=== PATIENT | female | born 1990 | race Caucasian/White ===

== ENCOUNTER 2016-09-21 14:22 | Emergency (ER) | payer OTHER ==
[2016-09-21 14:28] VITALS: PULSE 74
--- NOTE | 2016-09-21 14:52 | CPEKG ---
Heart Rate: 79 RR Interval: 759 P-R Interval: 156 QRSD Interval: 76 QT Interval: 368 QTC Interval: 422 P [place]: 75 QRS [place]: 53 T Wave [place]: 24 EKG Severity - NORMAL ECG - EKG Impression: SINUS RHYTHM Electronically Signed By: Saima Woodruff 21-Sep-2016 20:52:18
[2016-09-21 15:05] LABS: % IMMATURE GRANULYOCYTES 0.7 % (0.0-1.1); ABSOLUTE IMMATURE GRANULOCYTES 0.08 10^3/uL (0.00-0.10); ADD DIFF? NO; ADD MORPH? NO; ADD SCAN? NO; ATYPICAL LYMPHOCYTE FLAG 0 (0-99); FRAGMENT RBC FLAG 0 (0-99); HEMATOCRIT 41.2 % (38.0-47.0); HEMOGLOBIN 14.4 g/dL (12.6-16.3); LEFT SHIFT FLG 0 (0-99); LIPEMIA HEMOLYSIS FLAG 90 (0-99); MEAN CELL HEMOGLOBIN 33.6 pg (27.9-34.1); MEAN CELL VOLUME 96.3 fL (81.5-99.8); MEAN PLATELET VOLUME 12.3 fL (8.7-11.7); PLATELET CLUMPS FLAG 0 (0-99); PLATELET COUNT 238 10^3/uL (150-400); RED BLOOD CELL COUNT 4.28 10^6/uL (4.18-5.33); RED CELL DISTRIBUTION WIDTH 12.1 % (11.5-15.2)
[2016-09-21] MEDS ORDERED: OXYCODONE/APAP 5/325 TAB PO ONE (15:09)
--- NOTE | 2016-09-21 15:17 | EDPHY ---
H & P Time Seen by Provider: 09/21/16 14:42 HPI/ROS: 25-year-old female presented to emergency department complaining of left lower anterior rib pain. Onset at 9 o'clock last night, patient states she was sitting down watching TV when she felt a cramp right head area at that time it was a 10/10 pain, pain has now decreased but still intermittent increased pain with deep inspiration. Patient states that she has been sick with cough for 2- 3 weeks, initially with fever and chills but those symptoms have resolved denies any trauma. Patient states she does smoke marijuana the rib area is painful when she does take a deep inspiration when she is smoking marijuana. Denies any other complaints REVIEW OF SYSTEMS: Constitutional: Positive for fatigue, no changes in appetite or ADLs ENT: Intermittent sore throat Respiratory: Positive cough, rib pain with deep inspiration Cardiac: No chest pain Gastrointestinal: No abdominal pain nausea or vomiting Musculoskeletal: Positive rib pain Skin: No rashes Neurological: No headache or dizziness Smoking Status: Light smoker (smokes marijuana) Physical Exam: CONSTITUTIONAL: patient appeared well nourished, non-ill appearing and normally developed. No acute distress. Vital signs as documented. HEENT: Normocephalic atraumatic NECK: Supple, FROM without pain RESP: Non-labored resp effort, airway patent, CTAB CARDIAC: RRR w/o murmur, lorenzo. Normal S1/S2 GI: Abd soft NTTP, no mass MSK/EXTREMITIES: Left anterior rib and intercostal tenderness @9th/10th. SKIN: Warm dry PSYCH: Normal affect, calm, no distress Constitutional: Initial Vital Signs Temperature (C) 36.7 C 09/21/16 14:23 Heart Rate 74 09/21/16 14:23 Respiratory Rate 18 09/21/16 14:23 Blood Pressure 143/76 H 09/21/16 14:23 O2 Sat (%) 96 09/21/16 14:23 O2 Delivery Mode Room Air Allergies/Adverse Reactions: No Known Allergies Allergy (Unverified 10/13/09 01:17) Home Medications: Medication Instructions Recorded LAMICTAL ODT 10/13/09 Vivance 10/13/09 oxyCODONE/APAP 5/325 [Percocet 1 - 2 tab PO Q4H PRN #10 tab 09/21/16 5/325 (*)] Medical Decision Making - Diagnostics Imaging: Chest x-ray no acute findings ED Course/Re-evaluation: Discussed the plan of care: Chest x-ray negative for any acute findings, EKG labs drawn. Discharge home---> stable, discussed discharge instructions Differential Diagnosis: Differential diagnosis considered but not limited to pneumonia, pneumothorax and pleural effusion - Data Points Laboratory Results: Laboratory Results 09/21/16 14:55 09/21/16 09/21/16 14:55 14:55 WBC 11.44 10^3/uL H 10^3/uL (3.80-9.50) RBC 4.28 10^6/uL 10^6/uL (4.18-5.33) Hgb 14.4 g/dL g/dL (12.6-16.3) Hct 41.2 % % (38.0-47.0) MCV 96.3 fL fL (81.5-99.8) MCH 33.6 pg pg (27.9-34.1) MCHC 35.0 g/dL g/dL (32.4-36.7) RDW 12.1 % % (11.5-15.2) Plt Count 238 10^3/uL 10^3/uL (150-400) MPV 12.3 fL H fL (8.7-11.7) Neut % (Auto) 75.8 % H % (39.3-74.2) Lymph % (Auto) 16.7 % % (15.0-45.0) [place] % (Auto) 5.1 % % (4.5-13.0) Eos % (Auto) 0.9 % % (0.6-7.6) Baso % (Auto) 0.8 % % (0.3-1.7) Nucleat RBC Rel Count 0.0 % % (0.0-0.2) Absolute Neuts (auto) 8.68 10^3/uL H 10^3/uL (1.70-6.50) Absolute Lymphs (auto) 1.91 10^3/uL 10^3/uL (1.00-3.00) Absolute Monos (auto) 0.58 10^3/uL 10^3/uL (0.30-0.80) Absolute Eos (auto) 0.10 10^3/uL 10^3/uL (0.03-0.40) Absolute Basos (auto) 0.09 10^3/uL 10^3/uL (0.02-0.10) Absolute Nucleated RBC 0.00 10^3/uL 10^3/uL (0-0.01) Immature Gran % 0.7 % % (0.0-1.1) Immature Gran # 0.08 10^3/uL 10^3/uL (0.00-0.10) D-Dimer < 0.27 ug/mLFEU ug/mLFEU (0.00-0.50) Medications Given: Discontinued Medications Oxycodone/Acetaminophen (Percocet 5/325) 1 tab PO EDNOW ONE Stop: 09/21/16 15:10 Last Admin: 09/21/16 15:17 Dose: 1 tab Departure - Departure Disposition: Home, Routine, Self-Care Clinical Impression: Chest wall pain, Costochondral pain Condition: Good Instructions: Costochondritis (ED), Musculoskeletal Pain (ED) Additional Instructions: 1. Decrease strenuous activity or heavy lifting 2. you can take ibuprofen 600 mg every 6-8 hours as needed 3. You have an incentive spirometer home uses frequently taking deep breaths 4. You can also take wipe-mtr-hnblwya cough medicines such as dextromethorphan to help decrease cough 5. If any symptoms worsening since for become life-threatening such as: Increased short of breath , chest pain radiating back pain return emergency department. Follow up with your primary care provider next week Referrals: ROBB ANDRE [Other] - As per Instructions Prescriptions: oxyCODONE/APAP 5/325 [Percocet 5/325 (*)] 1 - 2 tab PO Q4H PRN #10 tab PRN Reason: Pain, Severe
[2016-09-21 16:58] VITALS: BP 117/74; RESP 16; TEMP 98.6; O2SAT 100
== END 2016-09-21 16:57 | disposition home or self-care (01) ==
DX: R07.1 Chest pain on breathing (principal); F17.200 Nicotine dependence, unspecified, uncomplicated

== ENCOUNTER 2017-10-17 13:51 | Emergency (ER) | payer OTHER ==
--- NOTE | 2017-10-17 14:17 | EDPHY ---
HPI/HX/ROS/PE/MDM Narrative: CHIEF COMPLAINT: Right thumb dog bite HISTORY OF PRESENT ILLNESS: This patient is a 26 year old female who presents with a dog bite to her right thumb sustained shortly prior to arrival. Her dog and a friend's dog reportedly got in a fight, so she attempted to separate them and was accidentally bitten. She states the dog is up to date on all vaccinations. The patient is up to date on her vaccinations as well. She has no additional trauma or complaints. REVIEW OF SYSTEMS: Aside from elements discussed in the HPI, a comprehensive 10-point review of systems was reviewed and is negative. PAST MEDICAL HISTORY: Anxiety. SOCIAL HISTORY: Friend at bedside. Employed. Lives in [place]. VITAL SIGNS: Reviewed by me GENERAL: Well-developed, well-nourished, resting comfortably in no respiratory distress. HEENT: Atraumatic. LUNGS: Clear to auscultation bilaterally, no wheezes, rhonchi or rales. CARDIAC: Regular rate and rhythm, no rubs, murmurs or gallops. EXTREMITIES: 3.5cm linear laceration (not gaping) extending over the MCP joint on radial side of thumb. Small laceration over IP joint or right thumb. Small abrasion over PIP joint of right index finger. Range of motion is normal throughout. NEURO: Alert and oriented, grossly nonfocal. SKIN: Warm and dry, no rash. PSYCHIATRIC: Normal mentation, no agitation. Portions of this note were transcribed by a clinical specialist medical device. I personally performed a history, physical exam, medical decision making, and confirmed accuracy of information the transcribed note. ED Course: 26 y/o female presents with a dog bite to the right hand. Exam reveals a linear laceration over the radial aspect of the right thumb as well as a small laceration to the IP joint of the thumb and abrasion over the PIP joint of the index finder. Discussed sutures vs. steri-strip application, and I recommend steri-strips to reduce risk of infection. The patient is amenable to this. Plan to clean laceration under standard ED protocol. Plan to consult with animal control. Administered 600mg PO ibuprofen for pain relief. Reassessed patient. She is feeling well and is comfortable with discharge home. Return precautions including infection precautions discussed. Prescription for Augmentin provided. She will follow up with primary care for repeat evaluation. MDM: Differential diagnoses for the patient's symptom complex was considered including but not limited to superficial laceration, bite laceration, tendon injury, open joint, abrasion, fracture. - Data Points Medications Given: Discontinued Medications Diphtheria/Tetanus/Acell Pertussis (Boostrix) 0.5 ml IM .ONCE ONE Stop: 10/17/17 15:41 Last Admin: 10/17/17 15:43 Dose: 0.5 ml Ibuprofen (Motrin) 600 mg PO EDNOW ONE Stop: 10/17/17 14:28 Last Admin: 10/17/17 14:37 Dose: 600 mg General Time Seen by Provider: 10/17/17 14:10 Initial Vital Signs: Initial Vital Signs Temperature (C) 36.6 C 10/17/17 13:53 Heart Rate 93 10/17/17 13:53 Respiratory Rate 16 10/17/17 13:53 Blood Pressure 136/100 H 10/17/17 13:53 O2 Sat (%) 100 10/17/17 13:53 O2 Delivery Mode Room Air Allergies/Adverse Reactions: No Known Allergies Allergy (Unverified 10/13/09 01:17) Home Medications: Medication Instructions Recorded LAMICTAL ODT 10/13/09 Vivance 10/13/09 oxyCODONE/APAP 5/325 [Percocet 1 - 2 tab PO Q4H PRN #10 tab 09/21/16 5/325 (*)] Amoxicillin/Clavulanate Pot 875 mg PO BID #14 tab 10/17/17 [Augmentin 875Mg] Departure - Departure Disposition: Home, Routine, Self-Care Clinical Impression: Dog bite of right hand, Laceration of thumb Condition: Good Instructions: Amoxicillin/Clavulanate Potassium (By mouth), Animal Bite (ED), Finger Laceration (ED) Additional Instructions: 1. Take Augmentin as prescribed. 2. Follow up with your primary care provider in 2-3 days. 3. Clean the wound as directed. 4. Return to the Emergency Department for fever, redness, discharge from wound, increasing pain or other worsening of condition. Referrals: Nando Mccartney MD [Medical Doctor] - As per Instructions Stand Alone Forms: Work Excuse Prescriptions: Amoxicillin/Clavulanate Pot [Augmentin 875Mg] 875 mg PO BID #14 tab Report Scribed for: Marleen Morgan Report Scribed by: Haydee Gallego Date of Report: 10/17/17 Time of Report: 14:12
[2017-10-17] MEDS ORDERED: IBUPROFEN 600 MG TAB PO ONE (14:27)
[2017-10-17] MEDS ORDERED: TDAP ADULT 0.5 ML INJ (BOOSTRIX) IM ONE (15:40)
[2017-10-17 16:17] VITALS: BP 139/88
== END 2017-10-17 16:16 | disposition home or self-care (01) ==
DX: S61.451A Open bite of right hand, initial encounter (principal); Z23 Encounter for immunization; W54.0XXA Bitten by dog, initial encounter; Y99.8 Other external cause status; Y93.89 Activity, other specified
CPT/HCPCS: L3807